=== PATIENT | female | born 1950 | race Caucasian/White ===

== ENCOUNTER 2019-09-12 12:36 | Inpatient (IN) | payer MEDICARE ==
--- NOTE | 2019-09-12 13:28 | EDM.PDOC ---
ED HPI GENERAL MEDICAL PROBLEM - General Chief Complaint: General Stated Complaint: EXPOSURE TO COVID DIZZY, SHAKEY Time Seen by Provider: 09/12/19 13:28 Source of Information: Reports: Patient, RN, RN Notes Reviewed History Limitations: Reports: No Limitations - History of Present Illness INITIAL COMMENTS - FREE TEXT/NARRATIVE: Patient presents to ER with complaint of feeling dizzy, shaky, and nauseated. 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 Patient states she has had someone else living with her who has Crohn's disease and is deathly afraid of getting COVID. Patient states she has had no known exposure to COVID. States she got overheated outside the other day, and feels she may be dehydrated. Admits to nausea, denies vomiting, denies fever chills, denies shortness of breath or chest pains. Onset: Gradual Headache Pain Score (Numeric/FACES): 2 - Related Data Allergies Allergy/AdvReac Type Severity Reaction Status Date / Time No Known Allergies Allergy Verified 09/12/19 12:49 Home Meds: Home Meds . [No Known Home Meds] 09/12/19 [History] Past Medical History - Past Health History Medical/Surgical History: Denies Medical/Surgical History Social & Family History - Tobacco Use Smoking Status *Q: Never Smoker Second Hand Smoke Exposure: No - Recreational Drug Use Recreational Drug Use: No ED ROS GENERAL - Review of Systems Review Of Systems: Comprehensive ROS is negative, except as noted in HPI. ED EXAM, GENERAL - Physical Exam Exam: See Below Exam Limited By: No Limitations General Appearance: Alert, WD/WN, No Apparent Distress, Anxious Eye Exam: Bilateral Eye: EOMI, Normal Inspection Ears: Normal External Exam, Hearing Grossly Normal Nose: Normal Inspection Throat/Mouth: Normal Inspection, Normal Voice, No Airway Compromise, Other (Dry mucous membranes) Head: Atraumatic, Normocephalic Neck: Normal Inspection, Supple, Non-Tender, Full Range of Motion Respiratory/Chest: No Respiratory Distress, Lungs Clear, Normal Breath Sounds, No Accessory Muscle Use, Chest Non-Tender Cardiovascular: Normal Peripheral Pulses, Regular Rate, Rhythm, No Edema, No Gallop, No JVD, No Murmur, No Rub Peripheral Pulses: 2+: Radial (L), Radial (R) GI/Abdominal: Normal Bowel Sounds, Soft, Non-Tender (Female) Exam: Deferred Rectal (Female) Exam: Deferred Back Exam: Normal Inspection, Full Range of Motion, NT Extremities: Normal Inspection, Normal Range of Motion, Non-Tender, Normal Capillary Refill, No Pedal Edema Neurological: Alert, Oriented, CN II-XII Intact, Normal Cognition, Normal Gait, Normal Reflexes, No Motor/Sensory Deficits Psychiatric: Normal Affect, Normal Mood, Anxious Skin Exam: Warm, Dry, Intact, Normal Color, No Rash Lymphatic: No Adenopathy Course - Vital Signs Last Recorded V/S: Last Vital Signs Temp 98.6 F 09/12/19 12:40 Pulse 86 09/12/19 12:40 Resp 20 09/12/19 12:40 BP 149/80 H 09/12/19 12:58 Pulse Ox 96 09/12/19 12:40 - Orders/Labs/Meds Orders: Active Orders 24 hr Category Date Time Status Admission Diagnosis [ADT] Stat ADT 09/12/19 14:37 Ordered Admission Status [Patient Status] [ADT] Routine ADT 09/12/19 14:37 Active UA RFX RYAN AND CULT IF INDIC [URIN] Stat Lab 09/12/19 13:34 Ordered Labs: Laboratory Tests 09/12/19 09/12/19 09/12/19 Range/Units 12:45 13:43 13:43 WBC 6.2 (5.0-10.0) 10^3/uL RBC 5.25 (4.2-5.4) 10^6/uL Hgb 15.7 (12.0-16.0) g/dL Hct 44.1 (37.0-47.0) % MCV 84.0 D (80-100) fL MCH 29.9 (27.0-34.0) pg MCHC 35.6 H (33.0-35.0) g/dL Plt Count 263 (150-450) 10^3/uL Neut % (Auto) 66.5 (42.2-75.2) % Lymph % (Auto) 21.5 (20.5-50.1) % [place] % (Auto) 11.6 H (2-8) % Eos % (Auto) 0.2 L (1.0-3.0) % Baso % (Auto) 0.2 (0.0-1.0) % Sodium 120 L (136-145) mmol/L Potassium 3.7 (3.5-5.1) mmol/L Chloride 83 L (98-107) mmol/L Carbon Dioxide 28 (21-32) mmol/L Anion Gap 12.7 (7-13) mEq/L BUN 12 (7-18) mg/dL Creatinine 0.67 (0.55-1.02) mg/dL Est Cr Clr Drug Dosing 53.48 mL/min Estimated GFR (MDRD) > 60 BUN/Creatinine Ratio 17.9 (No establ ref range) Glucose 103 H (74-99) mg/dL Calcium 9.5 (8.5-10.1) mg/dL Total Bilirubin 0.8 (0.2-1.0) mg/dL AST 36 (15-37) U/L ALT 39 (14-59) U/L Alkaline Phosphatase 60 (46-116) U/L Total Protein 8.3 H (6.4-8.2) g/dL Albumin 4.4 (3.4-5.0) g/dL Globulin 3.9 Albumin/Globulin Ratio 1.1 COVID-19 (BR[facility]NEY) Negative (NEGATIVE) Meds: Medications Discontinued Medications Generic Name Dose Route Start Last Admin Trade Name Freq PRN Reason Stop Dose Admin Sodium Chloride 1,000 mls @ 999 mls/hr 09/12/19 13:34 09/12/19 13:46 Normal Saline IV 09/12/19 14:34 999 mls/hr .BOLUS ONE Administration - Re-Assessments/Exams Free Text/Narrative Re-Assessment/Exam: 09/12/19 14:39 Discussed patient case with Dr. Lucero who agreed to accept the patient for inpatient admission. Departure - Departure Time of Disposition: 14:39 Disposition: Admitted As Inpatient 66 Condition: Fair Clinical Impression: Hyponatremia, Hypochloremia - Discharge Information *PRESCRIPTION DRUG MONITORING PROGRAM REVIEWED*: No *COPY OF PRESCRIPTION DRUG MONITORING REPORT IN PATIENT RIGOBERTO: No Forms: ED Department Discharge Sepsis Event Note (ED) - Evaluation Sepsis Screening Result: No Definite Risk - Focused Exam Vital Signs: Vital Signs Temp Pulse Resp BP Pulse Ox 09/12/19 12:58 149/80 H 09/12/19 12:40 98.6 F 86 20 96 - My Orders Last 24 Hours: My Active Orders 09/12/19 13:34 UA RFX RYAN AND CULT IF INDIC [URIN] Stat 09/12/19 14:37 Admission Diagnosis [ADT] Stat Admission Status [Patient Status] [ADT] Routine - Assessment/Plan Last 24 Hours: My Active Orders 09/12/19 13:34 UA RFX RYAN AND CULT IF INDIC [URIN] Stat 09/12/19 14:37 Admission Diagnosis [ADT] Stat Admission Status [Patient Status] [ADT] Routine
[2019-09-12] MEDS ORDERED: Sodium Chloride 0.9% 1,000 ML IV ONE (13:34)
[2019-09-12 14:20] LABS: ANION GAP 12.7 mEq/L (7-13); CHLORIDE,CL 83 mmol/L (98-107); SODIUM,NA 120 mmol/L (136-145)
[2019-09-12] MEDS ORDERED: Ondansetron 4 MG/2 ML SDV IVPUSH PRN (14:46)
[2019-09-12] MEDS ORDERED: Acetaminophen 325 MG Tab PO PRN (14:46)
[2019-09-12] MEDS: Sodium Chloride 0.9% 1,000 ML IV SCH (15:45)
--- NOTE | 2019-09-12 17:03 | PCM.HP ---
H&P History of Present Illness - General Date of Service: 09/12/19 Admit Problem/Dx: Admission Diagnosis/Problem Admission Diagnosis/Problem Hyponatremia Source of Information: Patient History Limitations: Reports: No Limitations - History of Present Illness Initial Comments - Free Text/Narative: This is a 69-year-old female with no significant past medical history. The pat filiberto presented to the emergency room because of dizziness which has been going on for at least the past 2 weeks. It has gradually worsened. She describes it as her head feeling congested. She does of associated headache which is mild but constant and has not responded to oral tatu-own-yophyqa analgesics. She has associated nausea and dry heaves. Has not been vomiting. Also has not had diarrhea or constipation. Her appetite in the past 2 days has not been great. Patient denies dysuria or frequency or micturition. Denies significant cough or wheezing. She does not think she has lost any significant weight. In the emergency room the patient was noted to be hyponatremic with sodium of 120. Headache Pain Score (Numeric/FACES): 2 - Related Data Allergies/Adverse Reactions: Allergies Allergy/AdvReac Type Severity Reaction Status Date / Time No Known Allergies Allergy Verified 09/12/19 15:27 Home Medications: Home Meds . [No Known Home Meds] 09/12/19 [History] Past Medical History - Past Health History Medical/Surgical History: Denies Medical/Surgical History HEENT History: Reports: Impaired Vision Musculoskeletal History: Reports: Arthritis - Infectious Disease History Infectious Disease History: Reports: Chicken Pox Social & Family History - Tobacco Use Smoking Status *Q: Never Smoker Second Hand Smoke Exposure: No - Caffeine Use Caffeine Use: Reports: Coffee - Recreational Drug Use Recreational Drug Use: No H&P Review of Systems - Review of Systems: Review Of Systems: See Below General: Reports: Malaise, Weakness, Fatigue HEENT: Reports: No Symptoms Pulmonary: Reports: No Symptoms Cardiovascular: Reports: No Symptoms Gastrointestinal: Reports: No Symptoms Genitourinary: Reports: No Symptoms Musculoskeletal: Reports: No Symptoms Psychiatric: Reports: No Symptoms Neurological: Reports: Dizziness, Headache, Weakness Exam - Exam Exam: See Below - Vital Signs Vital Signs: Last Vital Signs Temp 36.4 C 09/12/19 14:46 Pulse 68 09/12/19 14:46 Resp 20 09/12/19 14:46 BP 139/82 09/12/19 14:46 Pulse Ox 100 09/12/19 14:46 Weight: 43.001 kg - Exam General: Alert, Oriented, Cooperative Neck: Supple, Trachea Midline, 2 Lungs: Clear to Auscultation Cardiovascular: Regular Rate, Regular Rhythm, Normal S1 GI/Abdominal Exam: Normal Bowel Sounds, Soft, Non-Tender, No Organomegaly, No Distention, No Abnormal Bruit, No Mass, Pelvis Stable Extremities: Normal Inspection, Normal Range of Motion, Non-Tender, No Pedal Edema, Normal Capillary Refill Skin: Warm, Dry, Intact Psychiatric: Alert, Normal Affect, Normal Mood - Patient Data Lab Results Last 24 hrs: Laboratory Results - last 24 hr 09/12/19 09/12/19 09/12/19 Range/Units 12:45 13:43 13:43 WBC 6.2 (5.0-10.0) 10^3/uL RBC 5.25 (4.2-5.4) 10^6/uL Hgb 15.7 (12.0-16.0) g/dL Hct 44.1 (37.0-47.0) % MCV 84.0 D (80-100) fL MCH 29.9 (27.0-34.0) pg MCHC 35.6 H (33.0-35.0) g/dL Plt Count 263 (150-450) 10^3/uL Neut % (Auto) 66.5 (42.2-75.2) % Lymph % (Auto) 21.5 (20.5-50.1) % [place] % (Auto) 11.6 H (2-8) % Eos % (Auto) 0.2 L (1.0-3.0) % Baso % (Auto) 0.2 (0.0-1.0) % Sodium 120 L (136-145) mmol/L Potassium 3.7 (3.5-5.1) mmol/L Chloride 83 L (98-107) mmol/L Carbon Dioxide 28 (21-32) mmol/L Anion Gap 12.7 (7-13) mEq/L BUN 12 (7-18) mg/dL Creatinine 0.67 (0.55-1.02) mg/dL Est Cr Clr Drug Dosing 53.48 mL/min Estimated GFR (MDRD) > 60 BUN/Creatinine Ratio 17.9 (No establ ref range) Glucose 103 H (74-99) mg/dL Calcium 9.5 (8.5-10.1) mg/dL Total Bilirubin 0.8 (0.2-1.0) mg/dL AST 36 (15-37) U/L ALT 39 (14-59) U/L Alkaline Phosphatase 60 (46-116) U/L Total Protein 8.3 H (6.4-8.2) g/dL Albumin 4.4 (3.4-5.0) g/dL Globulin 3.9 Albumin/Globulin Ratio 1.1 Urine Color (YELLOW) Urine Appearance (CLEAR) Urine pH (5.0-9.0) Ur Specific [place] (1.005-1.030) Urine Protein (NEGATIVE) Urine Glucose (UA) (NEGATIVE) Urine Ketones (NEGATIVE) Urine Occult Blood (NEGATIVE) Urine Nitrite (NEGATIVE) Urine Bilirubin (NEGATIVE) Urine Urobilinogen (0.2-1.0) mg/dL Ur Leukocyte Esterase (NEGATIVE) Urine RBC /HPF Urine WBC (0-5/HPF) /HPF Ur Epithelial Cells (NOT SEEN) /HPF Urine Bacteria (0-FEW/HPF) /HPF COVID-19 ([facility]) Negative (NEGATIVE) 09/12/19 Range/Units 16:00 WBC (5.0-10.0) 10^3/uL RBC (4.2-5.4) 10^6/uL Hgb (12.0-16.0) g/dL Hct (37.0-47.0) % MCV (80-100) fL MCH (27.0-34.0) pg MCHC (33.0-35.0) g/dL Plt Count (150-450) 10^3/uL Neut % (Auto) (42.2-75.2) % Lymph % (Auto) (20.5-50.1) % [place] % (Auto) (2-8) % Eos % (Auto) (1.0-3.0) % Baso % (Auto) (0.0-1.0) % Sodium (136-145) mmol/L Potassium (3.5-5.1) mmol/L Chloride (98-107) mmol/L Carbon Dioxide (21-32) mmol/L Anion Gap (7-13) mEq/L BUN (7-18) mg/dL Creatinine (0.55-1.02) mg/dL Est Cr Clr Drug Dosing mL/min Estimated GFR (MDRD) BUN/Creatinine Ratio (No establ ref range) Glucose (74-99) mg/dL Calcium (8.5-10.1) mg/dL Total Bilirubin (0.2-1.0) mg/dL AST (15-37) U/L ALT (14-59) U/L Alkaline Phosphatase (46-116) U/L Total Protein (6.4-8.2) g/dL Albumin (3.4-5.0) g/dL Globulin Albumin/Globulin Ratio Urine Color Yellow (YELLOW) Urine Appearance Clear (CLEAR) Urine pH 6.5 (5.0-9.0) Ur Specific [place] 1.025 (1.005-1.030) Urine Protein Trace H (NEGATIVE) Urine Glucose (UA) Negative (NEGATIVE) Urine Ketones 15 H (NEGATIVE) Urine Occult Blood Trace-lysed H (NEGATIVE) Urine Nitrite Negative (NEGATIVE) Urine Bilirubin Negative (NEGATIVE) Urine Urobilinogen 0.2 (0.2-1.0) mg/dL Ur Leukocyte Esterase Negative (NEGATIVE) Urine RBC 0-5 /HPF Urine WBC 0-5 (0-5/HPF) /HPF Ur Epithelial Cells Rare (NOT SEEN) /HPF Urine Bacteria Not seen (0-FEW/HPF) /HPF COVID-19 ([facility]) (NEGATIVE) Result Diagrams: 09/12/19 13:43 09/12/19 13:43 Problem List Initiated/Reviewed/Updated: Yes Orders Last 24hrs: Active Orders 24 hr Category Date Time Status Admission Diagnosis [ADT] Stat ADT 09/12/19 14:37 Ordered Admission Status [Patient Status] [ADT] Routine ADT 09/12/19 14:37 Active Patient Status [ADT] Routine ADT 09/12/19 14:46 Active Cardiac Monitoring [RC] 08,20 Care 09/12/19 14:48 Active Up ad Sabine [RC] ASDIRECTED Care 09/12/19 14:46 Active VTE/DVT Education [RC] PER UNIT ROUTINE Care 09/12/19 14:46 Active Vital Signs [RC] 00,04,08,12,16,20 Care 09/12/19 14:46 Active PT Evaluation and Treatment [CONS] Routine Cons 09/12/19 14:46 Active Regular Diet [DIET] Diet 09/12/19 Lunch Active CXR [Chest 1V Frontal] [CR] Routine Exams 09/12/19 16:55 Ordered Head wo Cont [CT] Routine Exams 09/12/19 16:56 Ordered BASIC METABOLIC PANEL,BMP [CHEM] AM Lab 09/13/19 05:11 Ordered BASIC METABOLIC PANEL,BMP [CHEM] Q6H Lab 09/12/19 20:53 Ordered CBC W/O DIFF,HEMOGRAM [HEME] AM Lab 09/13/19 05:11 Ordered Acetaminophen [Tylenol] Med 09/12/19 14:46 Active 650 mg PO Q4H PRN Heparin Sodium Med 09/12/19 22:00 Active 5,000 units SUBCUT Q8HR Ondansetron [Zofran] Med 09/12/19 14:46 Active 4 mg IVPUSH Q6H PRN Sodium Chloride 0.9% [Normal Saline] 1,000 ml Med 09/12/19 15:00 Active IV ASDIRECTED Resuscitation Status Routine Resus Stat 09/12/19 14:46 Ordered Medication Orders Acetaminophen (Tylenol) 650 mg PO Q4H PRN PRN Reason: Pain (Mild 1-3)/fever Heparin Sodium (Porcine) (Heparin Sodium) 5,000 units SUBCUT Q8HR DAYAN Sodium Chloride (Normal Saline) 1,000 mls @ 125 mls/hr IV ASDIRECTED DAYAN Last Admin: 09/12/19 15:45 Dose: 125 mls/hr Documented by: GRACE Ondansetron HCl (Zofran) 4 mg IVPUSH Q6H PRN PRN Reason: Nausea/Vomiting Last Admin: 09/12/19 15:55 Dose: 4 mg Documented by: GRACE Assessment/Plan Comment:: Assessment/plan: #. Hyponatremia Reason for this is not obvious at this point It may be due to SIADH. The patient is having nausea and dry heaves. Has not vomited and does not have diarrhea #. Dizziness Etiology is unclear at this point Patient does complain of associated headache I'll like to exclude central nervous system disorder. #. Nausea and dry heaves Again, etiology remains elusive Plan: Admit patient to medical floor Send sample for around a urine sodium Send sample for random urine creatinine Obtain CT scan of the head Obtain chest x-ray Obtain serial basic metabolic panel every 6 hours Start patient on intravenous normal saline going at 125 mL an hour Patient's medical chart was reviewed. Discussed with the emergency room physician clinical assistant professor.
--- NOTE | 2019-09-12 17:34 | CR ---
PROCEDURE INFORMATION: Exam: XR Chest, 2 Views Exam date and time: 09/12/2019 4:58 PM Age: 69 years old Clinical indication: Other: Weakness TECHNIQUE: Imaging protocol: XR of the chest Views: 2 views. COMPARISON: No relevant prior studies available. FINDINGS: Lungs: The lungs are hyperinflated, consistent with underlying small airways disease. Atelectatic changes noted within the lung bases without focal pneumonia. Pleural space: Unremarkable. No pleural effusion. No pneumothorax. Heart/Mediastinum: The heart demonstrates mild diffuse enlargement. Bones/joints: Unremarkable. IMPRESSION: 1. The lungs are hyperinflated, consistent with underlying small airways disease. 2. Atelectatic changes noted within the lung bases without focal pneumonia.
--- NOTE | 2019-09-12 17:36 | CT ---
PROCEDURE INFORMATION: Exam: CT Head Without Contrast Exam date and time: 09/12/2019 5:15 PM Age: 69 years old Clinical indication: Pain; Headache TECHNIQUE: Imaging protocol: Computed tomography of the head without contrast. Radiation optimization: All CT scans at this facility use at least one of these dose optimization techniques: automated exposure control; mA and/or kV adjustment per patient size (includes targeted exams where dose is matched to clinical indication); or iterative reconstruction. COMPARISON: No relevant prior studies available. FINDINGS: Brain: Normal. No hemorrhage. Unremarkable white matter. No mass effect. Ventricles: Normal. No ventriculomegaly. Bones/joints: No acute fracture. Sinuses: Visualized sinuses are unremarkable. No fluid levels. Mastoid air cells: Visualized mastoid air cells are well aerated. Soft tissues: No acute changes IMPRESSION: No acute intracranial abnormality.
[2019-09-12 21:17] LABS: ANION GAP 10.8 mEq/L (7-13); CHLORIDE,CL 88 mmol/L (98-107); SODIUM,NA 120 mmol/L (136-145)
[2019-09-12] MEDS: Heparin Sodium 5,000 Units/ML Vial SUBCUT SCH (21:39)
[2019-09-12] MEDS: Sodium Chloride 1 GM Tab PO SCH (22:19)
[2019-09-13] MEDS: Sodium Chloride 0.9% 1,000 ML IV SCH (00:54)
[2019-09-13 03:22] LABS: ANION GAP 8.8 mEq/L (7-13); CHLORIDE,CL 95 mmol/L (98-107); SODIUM,NA 128 mmol/L (136-145)
[2019-09-13] MEDS: Heparin Sodium 5,000 Units/ML Vial SUBCUT SCH ×3 (06:04→21:46)
[2019-09-13] MEDS: Sodium Chloride 1 GM Tab PO SCH ×3 (08:34→21:46)
[2019-09-13 10:13] LABS: ANION GAP 11.5 mEq/L (7-13); CHLORIDE,CL 102 mmol/L (98-107); SODIUM,NA 136 mmol/L (136-145)
--- NOTE | 2019-09-13 10:31 | PCM.PN ---
- General Info Date of Service: 09/13/19 Subjective Update: Patient was admitted with hyponatremia sodium of 120. She was having dizziness, generalized weakness and felt unsteady. Today she indicates that she feels better. Continue to have some dizziness but improved compared to yesterday - Review of Systems General: Reports: Malaise HEENT: Reports: No Symptoms Pulmonary: Reports: No Symptoms Cardiovascular: Reports: No Symptoms Gastrointestinal: Reports: No Symptoms Musculoskeletal: Reports: No Symptoms - Patient Data Vitals - Most Recent: Last Vital Signs Temp 36.8 C 09/13/19 08:14 Pulse 76 09/13/19 08:14 Resp 20 09/13/19 08:14 BP 132/64 09/13/19 08:14 Pulse Ox 96 09/13/19 08:14 Weight - Most Recent: 42.751 kg I&O - Last 24 Hours: Intake & Output 09/12/19 09/13/19 09/13/19 22:59 06:59 14:59 Intake Total 240 125 Output Total 1100 Balance 240 -975 Lab Results Last 24 Hours: Laboratory Results - last 24 hr 09/12/19 09/12/19 09/12/19 Range/Units 12:45 13:43 13:43 WBC 6.2 (5.0-10.0) 10^3/uL RBC 5.25 (4.2-5.4) 10^6/uL Hgb 15.7 (12.0-16.0) g/dL Hct 44.1 (37.0-47.0) % MCV 84.0 D (80-100) fL MCH 29.9 (27.0-34.0) pg MCHC 35.6 H (33.0-35.0) g/dL Plt Count 263 (150-450) 10^3/uL Neut % (Auto) 66.5 (42.2-75.2) % Lymph % (Auto) 21.5 (20.5-50.1) % [place] % (Auto) 11.6 H (2-8) % Eos % (Auto) 0.2 L (1.0-3.0) % Baso % (Auto) 0.2 (0.0-1.0) % Sodium 120 L (136-145) mmol/L Potassium 3.7 (3.5-5.1) mmol/L Chloride 83 L (98-107) mmol/L Carbon Dioxide 28 (21-32) mmol/L Anion Gap 12.7 (7-13) mEq/L BUN 12 (7-18) mg/dL Creatinine 0.67 (0.55-1.02) mg/dL Est Cr Clr Drug Dosing 53.48 mL/min Estimated GFR (MDRD) > 60 BUN/Creatinine Ratio 17.9 (No establ ref range) Glucose 103 H (74-99) mg/dL Calcium 9.5 (8.5-10.1) mg/dL Total Bilirubin 0.8 (0.2-1.0) mg/dL AST 36 (15-37) U/L ALT 39 (14-59) U/L Alkaline Phosphatase 60 (46-116) U/L Total Protein 8.3 H (6.4-8.2) g/dL Albumin 4.4 (3.4-5.0) g/dL Globulin 3.9 Albumin/Globulin Ratio 1.1 Urine Color (YELLOW) Urine Appearance (CLEAR) Urine pH (5.0-9.0) Ur Specific [place] (1.005-1.030) Urine Protein (NEGATIVE) Urine Glucose (UA) (NEGATIVE) Urine Ketones (NEGATIVE) Urine Occult Blood (NEGATIVE) Urine Nitrite (NEGATIVE) Urine Bilirubin (NEGATIVE) Urine Urobilinogen (0.2-1.0) mg/dL Ur Leukocyte Esterase (NEGATIVE) Urine RBC /HPF Urine WBC (0-5/HPF) /HPF Ur Epithelial Cells (NOT SEEN) /HPF Urine Bacteria (0-FEW/HPF) /HPF Ur Random Creatinine (No establ ref range) mg/dL Ur Random Sodium (No establ.ref range) mmol/L COVID-19 ([place]) Negative (NEGATIVE) 09/12/19 09/12/19 09/12/19 Range/Units 16:00 16:00 16:00 WBC (5.0-10.0) 10^3/uL RBC (4.2-5.4) 10^6/uL Hgb (12.0-16.0) g/dL Hct (37.0-47.0) % MCV (80-100) fL MCH (27.0-34.0) pg MCHC (33.0-35.0) g/dL Plt Count (150-450) 10^3/uL Neut % (Auto) (42.2-75.2) % Lymph % (Auto) (20.5-50.1) % [place] % (Auto) (2-8) % Eos % (Auto) (1.0-3.0) % Baso % (Auto) (0.0-1.0) % Sodium (136-145) mmol/L Potassium (3.5-5.1) mmol/L Chloride (98-107) mmol/L Carbon Dioxide (21-32) mmol/L Anion Gap (7-13) mEq/L BUN (7-18) mg/dL Creatinine (0.55-1.02) mg/dL Est Cr Clr Drug Dosing mL/min Estimated GFR (MDRD) BUN/Creatinine Ratio (No establ ref range) Glucose (74-99) mg/dL Calcium (8.5-10.1) mg/dL Total Bilirubin (0.2-1.0) mg/dL AST (15-37) U/L ALT (14-59) U/L Alkaline Phosphatase (46-116) U/L Total Protein (6.4-8.2) g/dL Albumin (3.4-5.0) g/dL Globulin Albumin/Globulin Ratio Urine Color Yellow (YELLOW) Urine Appearance Clear (CLEAR) Urine pH 6.5 (5.0-9.0) Ur Specific [place] 1.025 (1.005-1.030) Urine Protein Trace H (NEGATIVE) Urine Glucose (UA) Negative (NEGATIVE) Urine Ketones 15 H (NEGATIVE) Urine Occult Blood Trace-lysed H (NEGATIVE) Urine Nitrite Negative (NEGATIVE) Urine Bilirubin Negative (NEGATIVE) Urine Urobilinogen 0.2 (0.2-1.0) mg/dL Ur Leukocyte Esterase Negative (NEGATIVE) Urine RBC 0-5 /HPF Urine WBC 0-5 (0-5/HPF) /HPF Ur Epithelial Cells Rare (NOT SEEN) /HPF Urine Bacteria Not seen (0-FEW/HPF) /HPF Ur Random Creatinine 57.04 (No establ ref range) mg/dL Ur Random Sodium 88 (No establ.ref range) mmol/L COVID-19 ([place]) (NEGATIVE) 09/12/19 09/13/19 09/13/19 Range/Units 21:00 03:00 03:00 WBC 4.5 L (5.0-10.0) 10^3/uL RBC 4.32 (4.2-5.4) 10^6/uL Hgb 12.9 D (12.0-16.0) g/dL Hct 36.9 L (37.0-47.0) % MCV 85.4 (80-100) fL MCH 29.9 (27.0-34.0) pg MCHC 35.0 (33.0-35.0) g/dL Plt Count 203 (150-450) 10^3/uL Neut % (Auto) (42.2-75.2) % Lymph % (Auto) (20.5-50.1) % [place] % (Auto) (2-8) % Eos % (Auto) (1.0-3.0) % Baso % (Auto) (0.0-1.0) % Sodium 120 L 128 L (136-145) mmol/L Potassium 3.8 3.8 (3.5-5.1) mmol/L Chloride 88 L 95 L (98-107) mmol/L Carbon Dioxide 25 28 (21-32) mmol/L Anion Gap 10.8 8.8 (7-13) mEq/L BUN 12 11 (7-18) mg/dL Creatinine 0.63 0.66 (0.55-1.02) mg/dL Est Cr Clr Drug Dosing 57.21 54.61 mL/min Estimated GFR (MDRD) > 60 > 60 BUN/Creatinine Ratio (No establ ref range) Glucose 103 H 87 (74-99) mg/dL Calcium 7.9 L D 7.9 L (8.5-10.1) mg/dL Total Bilirubin (0.2-1.0) mg/dL AST (15-37) U/L ALT (14-59) U/L Alkaline Phosphatase (46-116) U/L Total Protein (6.4-8.2) g/dL Albumin (3.4-5.0) g/dL Globulin Albumin/Globulin Ratio Urine Color (YELLOW) Urine Appearance (CLEAR) Urine pH (5.0-9.0) Ur Specific [place] (1.005-1.030) Urine Protein (NEGATIVE) Urine Glucose (UA) (NEGATIVE) Urine Ketones (NEGATIVE) Urine Occult Blood (NEGATIVE) Urine Nitrite (NEGATIVE) Urine Bilirubin (NEGATIVE) Urine Urobilinogen (0.2-1.0) mg/dL Ur Leukocyte Esterase (NEGATIVE) Urine RBC /HPF Urine WBC (0-5/HPF) /HPF Ur Epithelial Cells (NOT SEEN) /HPF Urine Bacteria (0-FEW/HPF) /HPF Ur Random Creatinine (No establ ref range) mg/dL Ur Random Sodium (No establ.ref range) mmol/L COVID-19 ([place]) (NEGATIVE) Med Orders - Current: Current Medications Acetaminophen (Tylenol) 650 mg PO Q4H PRN PRN Reason: Pain (Mild 1-3)/fever Heparin Sodium (Porcine) (Heparin Sodium) 5,000 units SUBCUT Q8HR [facility] Last Admin: 09/13/19 06:04 Dose: 5,000 units Documented by: Ondansetron HCl (Zofran) 4 mg IVPUSH Q6H PRN PRN Reason: Nausea/Vomiting Last Admin: 09/12/19 15:55 Dose: 4 mg Documented by: Sodium Chloride (Sodium Chloride) 1 gm PO TID [facility] Last Admin: 09/13/19 08:34 Dose: 1 gm Documented by: Discontinued Medications Sodium Chloride (Normal Saline) 1,000 mls @ 999 mls/hr IV .BOLUS ONE Stop: 09/12/19 14:34 Last Admin: 09/12/19 13:46 Dose: 999 mls/hr Documented by: Sodium Chloride (Normal Saline) 1,000 mls @ 75 mls/hr IV ASDIRECTED [facility] Last Admin: 09/13/19 00:54 Dose: 75 mls/hr Documented by: - Exam General: Alert, Oriented, Cooperative HEENT: Pupils Equal, Pupils Reactive, EOMI, Mucous Membr. Moist/[place] Lungs: Clear to Auscultation, Normal Respiratory Effort Cardiovascular: Regular Rate, Regular Rhythm GI/Abdominal Exam: Normal Bowel Sounds, Soft, Non-Tender, No Organomegaly, No Distention, No Abnormal Bruit, No Mass, Pelvis Stable Extremities: Normal Inspection, Normal Range of Motion, Non-Tender, No Pedal Edema, Normal Capillary Refill Sepsis Event Note - Evaluation Sepsis Screening Result: No Definite Risk - Focused Exam Vital Signs: Vital Signs Temp Pulse Resp BP Pulse Ox 09/13/19 08:14 36.8 C 76 20 132/64 96 09/13/19 04:00 36.4 C 62 18 114/60 97 Date Exam was Performed: 09/13/19 Time Exam was Performed: 10:29 - Problem List Review Problem List Initiated/Reviewed/Updated: Yes - My Orders Last 24 Hours: My Active Orders 09/12/19 Lunch Regular Diet [DIET] 09/12/19 14:46 Patient Status [ADT] Routine Up ad [place] [RC] ASDIRECTED VTE/DVT Education [RC] PER UNIT ROUTINE Vital Signs [RC] 00,04,08,12,16,20 PT Evaluation and Treatment [CONS] Routine Acetaminophen [Tylenol] 650 mg PO Q4H PRN Ondansetron [Zofran] 4 mg IVPUSH Q6H PRN Resuscitation Status Routine 09/12/19 22:00 Heparin Sodium 5,000 units SUBCUT Q8HR 09/12/19 22:06 Sodium Chloride 1 gm PO TID 09/13/19 Breakfast Fluid Restriction [DIET] 09/13/19 09:30 BASIC METABOLIC PANEL,BMP [CHEM] Routine 09/13/19 10:22 Brain wo Cont [MR] Routine 09/14/19 05:11 BASIC METABOLIC PANEL,BMP [CHEM] AM - Plan Plan:: Assessment/plan: #. Hyponatremia Likely due to SIADH #. Dizziness Etiology is unclear at this point Patient does complain of associated headache I'll like to exclude central nervous system disorder. #. Nausea and dry heaves Again, etiology remains elusive Plan: CT scan of the head obtained. No acute intracranial abnormality Discontinue intravenous fluids Discontinue telemetry Obtain MRI of the brain
--- NOTE | 2019-09-13 17:07 | MR ---
EXAMINATION: Brain wo Cont SEX: Female AGE: 69 years CLINICAL HISTORY: 69-year-old female complaining of persistent dizziness. CT scan head 12 September 2019 read as "unremarkable. No acute intracranial abnormality". SCAN TECHNIQUE: Unenhanced sagittal T1 and multisequence (T1/T2/FLAIR/diffusion weighted imaging) axial images of the head and brain obtained with the patient lying supine on the [employer] magnet [place], [place]. All data archived in the PACS system for storage, reformatting and study. INTERPRETATION: 1. Pansinusitis, i.e. mucoperiosteal inflammatory changes involving maxillary antra and ethmoid sinuses bilaterally (sphenoid and mastoid sinuses clear). 2. Scattered small bright signals identified throughout the periventricular white matter of both cerebral hemispheres typical of microvascular ischemic change. Hypertension? Diabetes? 3. No cerebral edema or areas of encephalomalacia (old infarcts). No demyelinization. No arachnoid cysts. 4. Symmetric normal volume ventricular system. No hydrocephalus. 5. No supratentorial or posterior fossa mass lesion. 6. Cerebellum and brainstem unremarkable. 7. No sign of acute intracranial bleed, i.e. no intracerebral, intraventricular or subarachnoid blood and no abnormal extracerebral/intracranial epidural or subdural hematomas. CONCLUSION: Chronic multi-infarct ischemic disease. Pansinusitis. No intracranial mass, hydrocephalus or bleed.
[2019-09-14] MEDS: Heparin Sodium 5,000 Units/ML Vial SUBCUT SCH ×2 (06:29→15:06)
[2019-09-14 07:10] LABS: ANION GAP 10.1 mEq/L (7-13); CHLORIDE,CL 103 mmol/L (98-107); SODIUM,NA 140 mmol/L (136-145)
[2019-09-14] MEDS: Sodium Chloride 1 GM Tab PO SCH ×2 (08:39→15:06)
[2019-09-14] MEDS ORDERED: Potassium Chloride 10 MEQ Tab.ER PO ONE (10:31)
[2019-09-14] MEDS ORDERED: Amoxicillin/Clavulanate K 875-125 MG Tab PO SCH (11:00)
--- NOTE | 2019-09-14 11:05 | PCM.DCSUM1 ---
Discharge Summary - Hospital Course Free Text/Narrative:: Patient was admitted with hyponatremia sodium of 120. She was having dizziness, generalized weakness and felt unsteady. The patient had a CT scan of the head which was unremarkable. Continued to complain of dizziness and lightheadedness. Was complaining of pain around the left temporal region. I proceeded to obtain MRI of the brain. That showed changes of chronic cerebrovascular accident. Patient was placed on fluid restriction and salt tablets. Serum sodium is back to normal. She has been started on medications for prevention of cerebrovascular accident. She will have outpatient carotid ultrasound and echocardiogram for complete workup of cerebrovascular accident. #. Hyponatremia Likely due to SIADH #. Dizziness #. Pansinusitis #. Nausea and dry heaves Again, etiology remains elusive - Discharge Data Discharge Date: 09/14/19 Discharge Disposition: Home, Self-Care 01 Condition: Stable - Referral to Home Health Primary Care Physician: Kaylen Beard NP - Patient Summary/Data Consults: Consultations 09/12/19 14:46 PT Evaluation and Treatment [CONS] Routine - Patient Instructions Diet: Usual Diet as Tolerated Fluid Restriction: 1500 mL Activity: As Tolerated Driving: May Drive Today Other/Special Instructions: BMP in one week - Discharge Plan *PRESCRIPTION DRUG MONITORING PROGRAM REVIEWED*: No *COPY OF PRESCRIPTION DRUG MONITORING REPORT IN PATIENT RIGOBERTO: No Prescriptions/Med Rec: Aspirin [Aspirin EC] 81 mg PO DAILY 90 Days #90 tablet. atorvaSTATin Calcium [Lipitor] 20 mg PO DAILY 30 Days #30 tablet Sodium Chloride 1 gm PO BID 30 Days #60 tablet Home Medications: Home Meds Aspirin [Aspirin EC] 81 mg PO DAILY 90 Days #90 tablet. 09/14/19 [Rx] Sodium Chloride 1 gm PO BID 30 Days #60 tablet 09/14/19 [Rx] atorvaSTATin Calcium [Lipitor] 20 mg PO DAILY 30 Days #30 tablet 09/14/19 [Rx] Referrals: PCP,None [Ordering Only Provider] - - Discharge Summary/Plan Comment DC Time >30 min.: No - Review of Systems General: Reports: Malaise HEENT: Reports: Headaches Pulmonary: Reports: No Symptoms Cardiovascular: Reports: No Symptoms Gastrointestinal: Reports: No Symptoms - Patient Data Vitals - Most Recent: Last Vital Signs Temp 37.1 C 09/14/19 07:12 Pulse 82 09/14/19 07:12 Resp 20 09/14/19 07:12 BP 148/86 H 09/14/19 07:12 Pulse Ox 97 09/14/19 07:12 Weight - Most Recent: 41.277 kg I&O - Last 24 hours: Intake & Output 09/13/19 09/14/19 09/14/19 22:59 06:59 14:59 Intake Total 100 360 Balance 100 360 Lab Results - Last 24 hrs: Laboratory Results - last 24 hr 09/14/19 Range/Units 06:34 Sodium 140 (136-145) mmol/L Potassium 3.1 L (3.5-5.1) mmol/L Chloride 103 (98-107) mmol/L Carbon Dioxide 30 (21-32) mmol/L Anion Gap 10.1 (7-13) mEq/L BUN 13 (7-18) mg/dL Creatinine 0.61 (0.55-1.02) mg/dL Est Cr Clr Drug Dosing 56.72 mL/min Estimated GFR (MDRD) > 60 Glucose 93 (74-99) mg/dL Calcium 8.6 (8.5-10.1) mg/dL Med Orders - Current: Current Medications Acetaminophen (Tylenol) 650 mg PO Q4H PRN PRN Reason: Pain (Mild 1-3)/fever Heparin Sodium (Porcine) (Heparin Sodium) 5,000 units SUBCUT Q8HR [facility] Last Admin: 09/14/19 06:29 Dose: 5,000 units Documented by: Ondansetron HCl (Zofran) 4 mg IVPUSH Q6H PRN PRN Reason: Nausea/Vomiting Last Admin: 09/12/19 15:55 Dose: 4 mg Documented by: Sodium Chloride (Sodium Chloride) 1 gm PO TID [facility] Last Admin: 09/14/19 08:39 Dose: 1 gm Documented by: Discontinued Medications Sodium Chloride (Normal Saline) 1,000 mls @ 999 mls/hr IV .BOLUS ONE Stop: 09/12/19 14:34 Last Admin: 09/12/19 13:46 Dose: 999 mls/hr Documented by: Sodium Chloride (Normal Saline) 1,000 mls @ 75 mls/hr IV ASDIRECTED [facility] Last Admin: 09/13/19 00:54 Dose: 75 mls/hr Documented by: Potassium Chloride (Klor-Con 10) 40 meq PO ONETIME ONE Stop: 09/14/19 10:32 Last Admin: 09/14/19 10:53 Dose: 40 meq Documented by: - Exam General: Reports: Alert, Oriented, Cooperative Neck: Reports: Supple Lungs: Reports: Clear to Auscultation, Normal Respiratory Effort Cardiovascular: Reports: Regular Rate, Regular Rhythm GI/Abdominal Exam: Normal Bowel Sounds, Soft, Non-Tender, No Organomegaly, No Distention, No Abnormal Bruit, No Mass, Pelvis Stable
== END 2019-09-14 14:45 | disposition home or self-care (01) | DRG 645 ==
LOC: DL.ED 12:36 → DL.MS 14:37
PROVIDERS: ADMIT Hospitalist; ATTEND Hospitalist
DX: E87.1 Hypo-osmolality and hyponatremia (principal); E87.8 Other disorders of electrolyte and fluid balance, not elsewhere classified; E22.2 Syndrome of inappropriate secretion of antidiuretic hormone; J32.4 Chronic pansinusitis; H54.7 Unspecified visual loss; M19.90 Unspecified osteoarthritis, unspecified site; R42 Dizziness and giddiness; Z79.82 Long term (current) use of aspirin; Z79.899 Other long term (current) drug therapy; Z20.828 Contact with and (suspected) exposure to other viral communicable diseases
CPT/HCPCS: 36415; 80053; 85025; 96360; 99284 ×2; J7030; U0002; 70450; 70551; 71046; 80048; 81001; 82570; 84300; 85027; 97161-GP; 99222; 99232; 99238; A9270-GY; J1644; J2405

== ENCOUNTER 2022-01-19 14:25 | Emergency (ER) | payer MEDICARE, MEDICAID ==
[2022-01-19] MEDS ORDERED: Cephalexin 500 MG Cap PO ONE ×2 (14:26→14:50)
[2022-01-19] MEDS ORDERED: Bacitracin Oint 1 GM U/D Packet TOP ONE (14:49)
[2022-01-19] MEDS ORDERED: Mupirocin Oint 22 GM Tube ONE (15:02)
[2022-01-19] MEDS ORDERED: Cephalexin 500 MG Cap ONE (15:03)
== END 2022-01-19 15:11 | disposition home or self-care (01) ==
LOC: DL.ED 14:25
DX: L03.011 Cellulitis of right finger (principal); Z79.899 Other long term (current) drug therapy
CPT/HCPCS: 99283; A9270

== ENCOUNTER 2024-07-29 18:30 | Emergency (ER) | payer MEDICARE, MEDICAID ==
[2024-07-29] MEDS: valACYclovir 1,000 MG Tab PO ONE (20:16)
== END 2024-07-29 20:23 | disposition home or self-care (01) ==
LOC: DL.ED 18:30
DX: K12.0 Recurrent oral aphthae (principal); F41.9 Anxiety disorder, unspecified; G47.00 Insomnia, unspecified; I10 Essential (primary) hypertension; Z79.82 Long term (current) use of aspirin; Z79.02 Long term (current) use of antithrombotics/antiplatelets; Z79.899 Other long term (current) drug therapy
CPT/HCPCS: 99283; 99284; A9270

== ENCOUNTER 2024-08-12 14:15 | Emergency (ER) | payer MEDICARE, MEDICAID | END 2024-08-12 15:55 | disposition home or self-care (01) | LOC: DL.ED 14:15 | DX: F41.0 Panic disorder [episodic paroxysmal anxiety] (principal); I10 Essential (primary) hypertension; Z79.82 Long term (current) use of aspirin; Z79.899 Other long term (current) drug therapy | CPT/HCPCS: 99283 ==